=== PATIENT | male | born 1990 | race Caucasian/White ===

== ENCOUNTER 2016-06-13 09:25 | Emergency (ER) | payer MEDICAID ==
[~2016-06-13] VITALS: Ht 170.2 cm; Wt 69.3 kg
[2016-06-13 09:30] VITALS: BP 132/86
== END 2016-06-13 10:46 | disposition home or self-care (01) ==
LOC: ED 10:20
DX: J20.9 Acute bronchitis, unspecified (principal); B96.89 Other specified bacterial agents as the cause of diseases classified elsewhere
CPT/HCPCS: 71020; 99284

== ENCOUNTER 2016-06-25 10:24 | Emergency (ER) | payer MEDICAID ==
[~2016-06-25] VITALS: Ht 170.2 cm; Wt 68.9 kg
[2016-06-25 10:25] VITALS: BP 130/84
[2016-06-25] MEDS ORDERED: ACETAMINOPHEN 500 MG TABLET ONE (10:57)
[2016-06-25] MEDS ORDERED: ONDANSETRON ODT 4 MG ONE (10:58)
[2016-06-25] MEDS ORDERED: ACETAMINOPHEN 500 MG TABLET PO ONE (11:00)
[2016-06-25] MEDS ORDERED: ONDANSETRON ODT 4 MG PO ONE (11:00)
[2016-06-25 11:24] LABS: RAPID INFLUENZA A Negative (Negative); RAPID INFLUENZA B Negative (Negative)
== END 2016-06-25 11:45 | disposition home or self-care (01) ==
LOC: ED 11:20
DX: J20.9 Acute bronchitis, unspecified (principal); B96.89 Other specified bacterial agents as the cause of diseases classified elsewhere
CPT/HCPCS: 71020; 87081; 87400; 87880; 99285; Q0162

== ENCOUNTER 2018-07-04 10:43 | Emergency (ER) | payer MEDICAID ==
[~2018-07-04] VITALS: Ht 167.6 cm; Wt 65.3 kg
[2018-07-04 10:54] VITALS: BP 132/87
[2018-07-04] MEDS ORDERED: PROPARACAINE OPHTH 0.5%, 15ML ONE (11:27)
[2018-07-04] MEDS ORDERED: PROPARACAINE OPHTH 0.5%, 15ML EACHEYE ONE (11:30)
== END 2018-07-04 12:33 | disposition home or self-care (01) ==
LOC: ED 12:25
DX: H53.131 Sudden visual loss, right eye (principal)
CPT/HCPCS: 99282